=== PATIENT | female | born 1955 | race Caucasian/White ===

== ENCOUNTER → 2016-11-10 | Outpatient (CLI) | payer BC ==
[~2016-11-10] MED LIST: ACET-763 PO; ALPR-240 PO; ASPI81TA43 PO; ATOR20TA27 PO; CINN500C14 PO; ESTR0.5T8 PO; FEXO1TAB PO; FURO-33 PO; HYDR-2119 PO; HYDR-3989 PO; METF-206 PO; ROPI0.5T5 PO; SKINNY FIBER PO; [UNRECOGNIZED DRUG - CODE] EA NOSTRIL
== END ==
LOC: WC.BC 08:16
DX: Z12.31 Encounter for screening mammogram for malignant neoplasm of breast (principal); N64.59 Other signs and symptoms in breast
CPT/HCPCS: 77063; G0202